=== PATIENT | male | born 1945 | race Two or more races ===

== ENCOUNTER 2016-08-17 09:37 | Emergency (ER) | payer MEDICARE, BC ==
[~2016-08-17] VITALS: Ht 180.3 cm; Wt 102.1 kg
[2016-08-17 09:38] VITALS: BP 143/84
--- NOTE | 2016-08-17 09:40 | NUR ---
AAOX3, C/O R KNEE PAIN/SWELLING x 1 WEEK. R PEDAL PULSES ARE STRONG AND EQUAL. SKIN IS WARM AND DRY. RESP IS EVEN AND UNLABORED. NO ACUTE DISTRESS NOTED. AWAITING MD FOR EVAL.
--- NOTE | 2016-08-17 09:58 | NUR ---
DR MCKINNON AT BS FOR EVAL.
--- NOTE | 2016-08-17 10:57 | NUR ---
CALLED DR. COUCH VIA [facility]
--- NOTE | 2016-08-17 11:40 | NUR ---
DR MCKINNON AT BS FOR AN UPDATE AND RE-EVAL.
--- NOTE | 2016-08-17 12:42 | NUR ---
REPORT GIVEN TO ISAI AVALOS FOR [facility].
== END 2016-08-17 12:52 | disposition home or self-care (01) ==
LOC: ER 09:40
DX: I80.01 Phlebitis and thrombophlebitis of superficial vessels of right lower extremity (principal); I10 Essential (primary) hypertension; E10.8 Type 1 diabetes mellitus with unspecified complications; F17.200 Nicotine dependence, unspecified, uncomplicated; Z95.1 Presence of aortocoronary bypass graft
CPT/HCPCS: 93971; 99284; A4606; Z7610